=== PATIENT | female | born 1950 | race African-American/Black ===

== ENCOUNTER → 2017-04-24 | Outpatient (CLI) | payer OTHER ==
[~2017-04-24] MED LIST: ASPIRIN325 PO; CARVEDILOL12.5 MG PO; CHLORTHALIDONE25 MG PO; CRESTOR10 MG PO; CYCLOBENZAPRINE5 MG PO; LISINOPRIL20 MG PO; NORCO 10-325 T1 EACH; PANTOPRAZOLE SO40 M1 PO; PLAVIX 75 MG TA75 M1 PO
--- NOTE | ~2017-04-24 | EKG ---
[address] [address] ELECTROCARDIOGRAM REPORT Name: ROMAIN MAJOR Room #: REG CLOscar Cartwright#: [id number] Admission: 04/24/17 Attend Phys: Brice Raza, Discharge: Date of : 50 Report #: [id number] THIS REPORT FOR: //name// [facility] Test Date: 2017-04-24 Test Time: 17:17:17 Pat Name: ROMAIN MAJOR Department: Room: Gender: F Bulb Weeder: Iliana MCCLELLAND : 1950 Requested By: Brice Raza Order Number: [id number] MD: Dank Butler Measurements Intervals [place] Rate: 64 P: -8 NE: 178 QRS: 12 QRSD: 93 T: 32 QT: 393 QTc: 406 Interpretive Statements Sinus rhythm No significant abnormality Compared to ECG 12/03/2007 22:04:58 No significant changes Electronically Signed On 04-24-2017 17:39:11 [employer] by Dank Butler [email or web address] <ELECTRONICALLY SIGNED> By: Dank Butler MD, [facility] 04/24/17 1739 1717 171 Dank Butler MD, FACC /EPI
== END ==
LOC: CV 16:54
DX: M19.011 Primary osteoarthritis, right shoulder (principal)

== ENCOUNTER → 2020-09-14 | Outpatient (CLI) | payer OTHER | LOC: RAD 12:23 | DX: M25.551 Pain in right hip (principal); M25.552 Pain in left hip; Z79.891 Long term (current) use of opiate analgesic ==